=== PATIENT | female | born 1985 | race Hispanic/Latino ===

== ENCOUNTER 2020-09-06 09:50 | Emergency (ER) | payer MEDICAID, SELFPAY ==
[2020-09-06] MEDS ORDERED: Famotidine/PF 20 mg/2ml Vial ONE (10:27)
[2020-09-06] MEDS ORDERED: predniSONE 20 MG TAB ONE (10:27)
[2020-09-06] MEDS ORDERED: Dexamethasone 10 MG/ML VIAL ONE (10:27)
[2020-09-06] MEDS ORDERED: Ondansetron PF 4 MG/2 ML Vial ONE ×2 (10:35)
== END 2020-09-06 12:36 | disposition home or self-care (01) ==
LOC: ERS 09:50
DX: T63.441A Toxic effect of venom of bees, accidental (unintentional), initial encounter (principal)
CPT/HCPCS: 96374; 96375; J1100; J2405; J7512; S0028

== ENCOUNTER 2024-01-16 17:39 | Emergency (ER) | payer SELFPAY | END 2024-01-16 18:42 | disposition home or self-care (01) | LOC: ERS 17:39 | DX: Z48.00 Encounter for change or removal of nonsurgical wound dressing (principal); Z75.8 Other problems related to medical facilities and other health care | CPT/HCPCS: 99282 ==